=== PATIENT | male | born 1970 ===

== ENCOUNTER 2023-08-06 04:48 | Day surgery (SDC) | payer BC ==
[2023-08-03 08:24] VITALS: BMI 28.0
[2023-08-06 12:18] VITALS: TEMP 97.8
[2023-08-06 12:58] VITALS: RESP 18
[2023-08-06 13:01] VITALS: BP 139/70; PULSE 58
== END 2023-08-06 13:24 | disposition home or self-care (01) ==
LOC: JASU-ENDO 04:48
PROVIDERS: ATTEND Internal Medicine Gastroenterology
PROC: 0DJD8ZZ Inspection of Lower Intestinal Tract, Via Natural or Artificial Opening Endoscopic (ICD-10-PCS; principal; 2023-08-06 10:30)
DX: Z12.11 Encounter for screening for malignant neoplasm of colon (principal)